=== PATIENT | male | born 1950 | race Caucasian/White ===

== ENCOUNTER 2018-04-04 13:37 | Emergency (ER) | payer OTHER, SELFPAY ==
[2018-04-04 13:45] VITALS: BP 184/109; PULSE 76; RESP 14; TEMP 36.8; O2SAT 97
--- NOTE | 2018-04-04 14:00 | ED.GENADUL_ITS ---
Discharge Plan Disposition Patient Disposition: HOME Condition: Stable Discharge Details Chief Complaint: Abd Prob Clinical Impression: Constipation Primary Care Provider: None,None ED Provider: Adrianna John Home Meds and New Rx's Prescriptions: New polyethylene glycol 3350 [Miralax] 17 gram powder in packet 17 gm PO DAILY Qty: 6 RF: 0 Continued carbidopa-levodopa [Sinemet CR] 1 EACH tablet extended release 1 tab PO TID RF: 0 amantadine HCl 100 MG capsule 100 mg PO DAILY RF: 0 baclofen 10 MG tablet 10 mg PO TID RF: 0 Discharge Instructions Instructions: Polyethylene Glycol 3350 (By mouth), Constipation (ED) Additional Instructions: Please return immediately to the emergency department if you develop any new or worsening symptoms or if you become otherwise concerned. It is extremely important that you make an appointment to be seen by your primary care doctor within the next 1-2 weeks in follow-up for this visit. Discharge Data Discharge Date/Time-TO BE ENTERED AT DEPARTURE: 04/04/18 20:22 Medical Decision Making Jalil Urias is a 67-year-old man with history of Parkinson's disease with electronic brain stimulator in place presenting to the emergency department with left lower quadrant pain for the past 2 days in setting of chronic unchanged constipation. Exam patient is chronically ill but acutely nontoxic appearing. He has focal tenderness in the left lower quadrant without peritoneal signs. Concern for diverticulitis, ileus, constipation, UTI, other. Exam/history not consistent with sepsis, acute aortic process, stimulator pocket pathology. Plan for screening labs, UA, CT. CT shows constipation, enlarged prostate which is known to Pt. Labs non- diagnostic. Do not suspect acute emergent life-threating process at this time. Plan for miralax. I had a lengthy discussion with Pt re: RTED precautions and importance of outpt f/u with PCP for contipation, prostate enlargement. Pt verbalizes understanding of the plan and is in agreement. All questions answered. Medical Records Medical records reviewed: Yes I reviewed the patient's medical records. Imaging Data Radiologic Study: Attestation: I personally reviewed and interpreted this imaging study as follows: Radiologist's impression: FINDINGS: Lower thorax: The visualized portions of the heart and pericardium appear unremarkable. The visualized lung bases appear within normal limits. ABDOMEN: Liver: There is a low attenuation lesion within the left lobe of the liver measuring approximately 8 mm. This most likely represents a small cyst. This is too small to characterize by CT criteria. There is an additional low-attenuation lesion within the left lobe of the liver measuring 8 mm. This again most likely represents a cyst however is too small to characterize by CT criteria. Gallbladder and bile ducts: The gallbladder is within normal limits. Pancreas: The pancreas is within normal limits. Spleen: The spleen is unremarkable. Adrenals: The adrenal glands are unremarkable. Kidneys and ureters: The kidneys are within normal limits. Stomach and bowel: There are feces throughout the colon consistent with constipation. There is a collapsed section of sigmoid colon. Appendix: The appendix is visualized and is within normal limits. PELVIS: Bladder: The urinary bladder is within normal limits. Reproductive: The prostate is enlarged and indents the bladder base. The seminal vesicles appear unremarkable. ABDOMEN and PELVIS: Intraperitoneal space: Normal. No free air. No significant fluid collection. Bones/joints: There are degenerative changes of the thoracic and lumbar spines. There is degenerative disc disease at L4-L5 and L5-S1. Soft tissues: There is a brain stimulating device in the subcutaneous soft tissues of the abdomen. This is for the patient's Parkinson's disease. Vasculature: There are arteriosclerotic changes of the aorta. Lymph nodes: No enlarged lymph nodes. IMPRESSION: Constipation as above. Osseous findings as above. Enlarged prostate. Correlation with the patient's PSA is recommended. Small low attenuation lesions within the liver most likely representing cysts. These are too small to characterize by CT criteria. Lab Data Lab results reviewed: Yes I reviewed the patient's lab results. Laboratory Tests Range/Units 04/04/18 04/04/18 04/04/18 15:10 15:10 15:40 WBC (4.4-10.8) k/cumm 6.55 RBC (4.50-6.00) m/cumm 4.85 Hgb (13.5-17.5) g/dL 14.9 Hct (40.0-50.0) % 44.6 MCV (80-95) fL 92.0 MCH (27.0-33.0) pg 30.7 MCHC (32.0-36.0) g/dL 33.4 RDW (11.8-14.1) % 13.4 Plt Count (130-400) x1000/uL 202 MPV (8.0-11.0) fL 9.8 Immature Gran % 0.2 Neutrophils % 63.9 Lymphocytes % 24.6 Monocytes % 9.0 Eosinophils % 2.0 Basophils % 0.3 Absolute Neutrophils (1.2-6.7) k/cumm 4.19 Absolute Lymphocytes (1.2-3.4) k/cumm 1.61 Absolute Monocytes (0.11-0.7) k/cumm 0.59 Absolute Eosinophils (0.0-0.7) k/cumm 0.13 Absolute Basophils (0.0-0.2) k/cumm 0.02 Sodium (136-145) mmol/L 141 Potassium (3.5-5.1) mmol/L 4.5 Chloride (98-107) mmol/L 105 Carbon Dioxide (21.0-32.0) mmol/L 30.4 Anion Gap (3-11) mmol/L 5.6 BUN (7-18) mg/dL 15 Creatinine (0.70-1.30) mg/dL 1.09 Estimated GFR/1.73 m2 (mL/min/1.73m2) >= 60.00 Glucose (70-100) mg/dL 112 H Calcium (8.5-10.1) mg/dL 9.0 Total Bilirubin (0.2-1.0) mg/dL 0.6 AST (15-37) U/L 19 ALT (12-78) U/L 23 Alkaline Phosphatase (46-116) U/L 84 Total Protein (6.4-8.2) g/dL 7.2 Albumin (3.4-5.0) g/dL 3.5 Lipase (73-393) U/L 102 Urine Color (Yellow) Yellow Urine Clarity Clear Urine pH (5-8) 8.0 Ur Specific [place] (1.005-1.025) 1.015 Urine Protein (Negative) mg/dL Negative Urine Ketones (Negative) mg/dL Negative Urine Blood (Negative) Negative Urine Nitrite (Negative) Negative Urine Bilirubin (Negative) Negative Urine Urobilinogen (Up TO 0.2) EU/dL 0.2 Ur Leukocyte Esterase (Negative) Negative Urine Glucose (Negative) mg/dL Negative HPI General Mode of arrival: ambulatory . Date/Time Provider Initiated Documentation: 04/04/18 13:59 . Limitations to Documentation: no limitations . Information obtained by: patient, RN notes reviewed and old records reviewed . HPI Narrative: Jalil Urias is a 67-year-old man with history of Parkinson's disease presenting to the emergency department with abdominal pain. Left lower quadrant pain has been present for the past 2 days, gradually worsening in severity. He has been taking significant amounts of ibuprofen for the pain. He has history of chronic constipation that is unchanged, and he did have a bowel movement yesterday. He has had no other associated symptoms: No fever, no nausea/vomiting/diarrhea, new weakness, new numbness. Patient with chronic unchanged left hip pain. Denies any other pain. Patient has brain stimulator in place for Parkinson's, previously pocket was left chest, pocket is now upper abdomen. Patient reports the pain is in the left lower quadrant, without pain in area of stimulator. Pain has no modifiers. Unchanged with eating. He has been eating and drinking as usual. He is currently on meditation retreat in the area. He reports that he stopped taking all of his prescribed medications 8 months ago, and now takes only herbal supplements. Related Data Home Medications Medication Instructions Recorded Confirmed amantadine HCl 100 mg PO DAILY 04/03/13 04/04/18 baclofen 10 mg PO TID 04/03/13 04/03/13 carbidopa-levodopa [Sinemet CR] 1 tab PO TID 04/03/13 04/03/13 polyethylene glycol 3350 [Miralax] 17 gm PO DAILY #6 each 04/04/18 Previous Rx's Medication Instructions Recorded polyethylene glycol 3350 [Miralax] 17 gm PO DAILY #6 each 04/04/18 Allergies Allergy/AdvReac Type Severity Reaction Status Date / Time No Known Allergies Allergy Unverified 04/04/18 13:49 General Stated Complaint: Abd Prob YEFRI: 3 Review of Systems Review of Systems Constitutional: denies fevers Eyes: denies eye pain ENT: denies facial pain, dental pain, sore throat Cardiovascular: denies chest pain, edema Respiratory: denies SOB, cough GI: denies vomiting, diarrhea, reports abdominal pain, chronic constipation : denies flank pain MSK: denies back pain, neck pain, myalgias, reports chronic hip pain Skin: denies rash Neuro: denies headaches, numbness, weakness PFSH Social History Smoking/Tobacco Use Status: Former Tobacco Use Exam Narrative Exam Narrative: Constitutional: Chronically ill but acutely nontoxic appearing, pleasant, slow speech he and his friend report as normal for him HENT: head atraumatic, normocephalic normal inspection, mucous membranes moist Eyes: conjunctiva normal, sclera normal, pupils 3mm b/l Neck: no stridor, normal ROM, trachea midline Chest: normal inspection Resp: normal work of breathing, LCTAB Cardio: normal rate, normal rhythm, no murmur appreciated GI: abdomen soft, non-distended, left lower quadrant focally tender but without rebound or guarding, electronic stimulator in place upper abdomen with no tenderness/edema/fluctuance, no overlying skin change Back: normal inspection, no rash Skin: warm, dry, normal color, no rash Neuro: alert, not altered, increased tone throughout, ambulates with assistance Ext: no edema Psych: normal mood, normal affect, normal behavior Course Vital Signs Temperature 36.8 C 04/04/18 13:45 Pulse 76 04/04/18 13:45 Respiratory Rate 14 04/04/18 13:45 Blood Pressure 184/109 H 04/04/18 13:45 Pulse Oximetry 97 04/04/18 13:45 Temperature 36.8 C 04/04/18 13:45 Temperature Source Temporal Artery Scan 04/04/18 13:45 Pulse 76 04/04/18 13:45 Respiratory Rate 14 04/04/18 13:45 Respiratory Effort Non-Labored 04/04/18 13:48 Blood Pressure 184/109 H 04/04/18 13:45 Blood Pressure Position Sitting 04/04/18 13:45 Pulse Oximetry 97 04/04/18 13:45 Pain Level 8 04/04/18 13:45
--- NOTE | 2018-04-04 14:22 | DI.CT_ITS ---
SYMPTOMS/DIAGNOSIS: ABD PAIN CT OF THE ABDOMEN AND PELVIS: There are no prior comparison exams. The lung bases are clear. There is a tiny cyst at the superior portion of the liver. The gallbladder, spleen, pancreas, adrenals and kidneys are unremarkable. A battery pack for a stimulator device is seen in the anterior chest producing mild artifact. There is increased stool seen in the colon, consistent with constipation. The prostate is mildly enlarged. There is mild diffuse bladder wall thickening. The appendix appears normal. There is no evidence of obstruction. IMPRESSION: Increased quantity of stool. Enlarged prostate. No acute abnormality is seen.
[2018-04-04 15:13] VITALS: BP 157/91; PULSE 64; RESP 20; TEMP 36.7; O2SAT 97
[2018-04-04 15:17] LABS: Abs Immature Grans 0.01 k/cumm (0.0-0.09); Absolute Basophil Count 0.02 k/cumm (0.0-0.2); Absolute Eosinophil Count 0.13 k/cumm (0.0-0.7); Absolute Lymphocyte Count 1.61 k/cumm (1.2-3.4); Absolute Monocyte Count 0.59 k/cumm (0.11-0.7); Absolute Neutrophil Count 4.19 k/cumm (1.2-6.7); Basophils % 0.3; HCT 44.6 % (40.0-50.0); HGB 14.9 g/dL (13.5-17.5); Immature Grans % 0.2; Lymphocytes % 24.6; Mean Corp. HGB Concentration 33.4 g/dL (32.0-36.0); Mean Corpuscular Hemoglobin 30.7 pg (27.0-33.0); Mean Platelet Volume 9.8 fL (8.0-11.0); Neutrophils % 63.9; Platelet Count 202 x1000/uL (130-400); RBC 4.85 m/cumm (4.50-6.00); RBC Distribution Width 13.4 % (11.8-14.1); White Blood Cell Count 6.55 k/cumm (4.4-10.8)
[2018-04-04 15:30] LABS: ALT 23 U/L (12-78); AST 19 U/L (15-37); Albumin 3.5 g/dL (3.4-5.0); Alkaline Phosphatase 84 U/L (46-116); Anion Gap 5.6 mmol/L (3-11); BUN 15 mg/dL (7-18); Bilirubin, Total 0.6 mg/dL (0.2-1.0); CO2 30.4 mmol/L (21.0-32.0); CREATININE 1.09 mg/dL (0.70-1.30); Chloride 105 mmol/L (98-107); Glucose 112 mg/dL (70-100); Lipase 102 U/L (73-393); Potassium 4.5 mmol/L (3.5-5.1); Sodium 141 mmol/L (136-145); Total Protein 7.2 g/dL (6.4-8.2)
[2018-04-04 15:49] LABS: Bilirubin Negative (Negative); Blood Negative (Negative); Clarity Clear; Glucose Negative (Negative); Ketones Negative (Negative); Leukocyte Esterase Negative (Negative); Nitrite Negative (Negative); Specific Gravity 1.015 (1.005-1.025); Urobilinogen 0.2 EU/dL (Up TO 0.2)
[2018-04-04] MEDS: Omnipaque 350 MG/ML 100 ML BTL IJ (15:57)
--- NOTE | 2018-04-04 16:36 | DI.VRAD_ITS ---
EXAM: CT Abdomen and Pelvis With Contrast EXAM DATE/TIME: 04/04/2018 2:23 PM CLINICAL HISTORY: 67 years old, male; Pain; Abdominal pain; Other: Left sided pain; Prior surgery; Surgery date: 6+ months TECHNIQUE: Axial computed tomography images of the abdomen and pelvis with intravenous contrast. All CT scans at this facility use at least one of these dose optimization techniques: automated exposure control; mA and/or kV adjustment per patient size (includes targeted exams where dose is matched to clinical indication); or iterative reconstruction. Coronal and sagittal reformatted images were created and reviewed. CONTRAST: 100 ml of administered intravenously. COMPARISON: No relevant prior studies available. FINDINGS: Lower thorax: The visualized portions of the heart and pericardium appear unremarkable. The visualized lung bases appear within normal limits. ABDOMEN: Liver: There is a low attenuation lesion within the left lobe of the liver measuring approximately 8 mm. This most likely represents a small cyst. This is too small to characterize by CT criteria. There is an additional low-attenuation lesion within the left lobe of the liver measuring 8 mm. This again most likely represents a cyst however is too small to characterize by CT criteria. Gallbladder and bile ducts: The gallbladder is within normal limits. Pancreas: The pancreas is within normal limits. Spleen: The spleen is unremarkable. Adrenals: The adrenal glands are unremarkable. Kidneys and ureters: The kidneys are within normal limits. Stomach and bowel: There are feces throughout the colon consistent with constipation. There is a collapsed section of sigmoid colon. Appendix: The appendix is visualized and is within normal limits. PELVIS: Bladder: The urinary bladder is within normal limits. Reproductive: The prostate is enlarged and indents the bladder base. The seminal vesicles appear unremarkable. ABDOMEN and PELVIS: Intraperitoneal space: Normal. No free air. No significant fluid collection. Bones/joints: There are degenerative changes of the thoracic and lumbar spines. There is degenerative disc disease at L4-L5 and L5-S1. Soft tissues: There is a brain stimulating device in the subcutaneous soft tissues of the abdomen. This is for the patient's Parkinson's disease. Vasculature: There are arteriosclerotic changes of the aorta. Lymph nodes: No enlarged lymph nodes. IMPRESSION: Constipation as above. Osseous findings as above. Enlarged prostate. Correlation with the patient's PSA is recommended. Small low attenuation lesions within the liver most likely representing cysts. These are too small to characterize by CT criteria. Dictated and Authenticated by: Blu Cho MD. Ordering:CUCA Rodas MD
[2018-04-04 17:38] VITALS: BP 125/91; PULSE 67; RESP 20; TEMP 37; O2SAT 97
[2018-04-04] MEDS: Polyethylene Glycol 3350 17 GM PACKET PO (20:00)
== END 2018-04-04 20:22 | disposition home or self-care (01) ==
PROVIDERS: Emergency Provider Student in an Organized Health Care Education/Training Program
DX: K59.00 Constipation, unspecified (principal); G20 Parkinson's disease
CPT/HCPCS: 36415; 80053; 83690; 96374; 99285; 74177; 81003; 85025; 99284; J3490